=== PATIENT | female | born 1985 | race Two or more races ===

== ENCOUNTER 2018-01-05 13:09 | Inpatient (IN) | payer OTHER ==
[~2018-01-05] VITALS: Ht 180.3 cm; Wt 99.8 kg
[2018-01-05] MEDS ORDERED: PRENATAL TABLE1 EAC2 PO (14:01)
== END 2018-01-07 15:18 | disposition home or self-care (01) | DRG 807 ==
LOC: OB/GYN 13:09 → LDR 13:09 → OB/GYN 17:11
PROC: 10E0XZZ Delivery of Products of Conception, External Approach (ICD-10-PCS; principal; 2018-01-05)
PROC: 4A1HXCZ Monitoring of Products of Conception, Cardiac Rate, External Approach (ICD-10-PCS; 2018-01-05)
DX: O80 Encounter for full-term uncomplicated delivery (principal); Z37.0 Single live birth; Z3A.39 39 weeks gestation of pregnancy

== ENCOUNTER 2025-01-29 17:12 | Emergency (ER) | payer OTHER ==
[~2025-01-29] VITALS: Ht 180.3 cm; Wt 95.3 kg
[~2025-01-29 17:12] MED LIST: PRENATAL TABLE1 EAC2 PO
[2025-01-29] MEDS ORDERED: ACETAMINOPHEN 325 MG TABLET PO ONE ×2 (18:30→19:04)
[2025-01-29 20:16] LABS: BASO % 0.8 % (0.1-1.2); EOS # 0.32 (0.04-0.54); EOS % 3.8 % (0.7-7.0); LYMPH # 2.04 (1.18-3.74); LYMPH % 24.3 % (19.3-53.1); MEAN PLATELET VOLUME 10.80 fl (9.4-12.4); MONO # 0.46 (0.24-0.82); MONO % 5.5 % (4.7-12.5); NEUT # 5.46 (1.56-6.13); NEUT % 65.2 % (34.0-71.1); RED CELL DISTRIBUTION WIDTH 17.8 % (11.6-14.4)
[2025-01-29 21:31] LABS: BUN CREA RATIO 16.0 (7.0-25.0); CREATININE SERUM 0.64 mg/dL (0.55-1.02); GFR 103.85; GLUCOSE FASTING 133.0 mg/dL (65-100); OSMOLALITY SERUM 278.0 MOSM/KG (275-295)
[2025-01-29 21:33] LABS: URINE APPEARANCE Clear; URINE BILIRRUBIN Negative (NEGATIVE); URINE BLOOD Negative; URINE COLOR Dark Yellow; URINE GLUCOSE Negative (NEGATIVE); URINE KETONE 15 (NEGATIVE); URINE LEUKOCYTE Small; URINE NITRATE Negative; URINE PROTEIN Trace (NEGATIVE); URINE UROBILINOGEN 1.0 E.U./dl
[2025-01-29 21:37] LABS: URINE BACTERIA 301.1 uL (0.0-1933); URINE EPITHELIAL CELLS 18.1 uL (0.0-38.8); URINE RBC 4.3 uL (0.0-20.8); URINE WBC 21.5 uL (0.0-23.2)
[2025-01-29 21:44] LABS: TYPE CELLS SQUAMOUS; URINE CAST 0.58 uL (0.0-1.40)
== END 2025-01-30 00:07 | disposition home or self-care (01) ==
LOC: ER 17:12
PROVIDERS: General Practice
DX: O46.8X9 Other antepartum hemorrhage, unspecified trimester (principal); Z88.0 Allergy status to penicillin; Z88.6 Allergy status to analgesic agent; Z3A.01 Less than 8 weeks gestation of pregnancy; R10.21 Pelvic and perineal pain right side; K59.00 Constipation, unspecified

== ENCOUNTER 2025-02-10 23:40 | Emergency (ER) | payer OTHER ==
[~2025-02-10] VITALS: Ht 180.3 cm; Wt 95.3 kg
[2025-02-10] MEDS ORDERED: ONDANSETRON HCL 2 MG/ML VIAL IV ONE (23:45)
[2025-02-10] MEDS ORDERED: FAMOtidine 10 MG/ML (4ML VIAL) IV ONE (23:45)
[2025-02-10] MEDS ORDERED: 0.9 % SODIUM CHLORIDE 1,000 ML IV SCH (23:45)
[2025-02-10] MEDS ORDERED: PRENATA CHEWAB1 EACH PO (23:49)
[2025-02-10] MEDS ORDERED: FOLIC ACID0.8 M1 PO (23:49)
[2025-02-11 01:08] LABS: BASO % 0.7 % (0.1-1.2); EOS # 0.53 (0.04-0.54); EOS % 4.7 % (0.7-7.0); LYMPH # 2.19 (1.18-3.74); LYMPH % 19.6 % (19.3-53.1); MEAN PLATELET VOLUME 10.30 fl (9.4-12.4); MONO # 0.64 (0.24-0.82); MONO % 5.7 % (4.7-12.5); NEUT # 7.70 (1.56-6.13); NEUT % 68.9 % (34.0-71.1); RED CELL DISTRIBUTION WIDTH 20.8 % (11.6-14.4)
[2025-02-11 01:38] LABS: ALT/SGPT 27.0 U/L (12-78); AST/SGOT 12.0 U/L (15-37); BILIRUBIN TOTAL 0.26 mg/dL (0.3-1.2); BUN CREA RATIO 17.0 (7.0-25.0); CREATININE SERUM 0.64 mg/dL (0.55-1.02); GFR 103.85; GLOBULINA 3.8 G/DL (2.4-3.5); GLUCOSE FASTING 102.0 mg/dL (65-100); OSMOLALITY SERUM 277.0 MOSM/KG (275-295)
[2025-02-11 02:00] LABS: BILIRUBIN TOTAL 0.21 mg/dL (0.3-1.2); BILIRUBIN,CONJUGATED < 0.10 mg/dL (0.0-0.2)
[2025-02-11 02:59] LABS: URINE APPEARANCE Clear; URINE BILIRRUBIN Negative (NEGATIVE); URINE BLOOD Negative; URINE COLOR Yellow; URINE GLUCOSE Negative (NEGATIVE); URINE KETONE 15 (NEGATIVE); URINE LEUKOCYTE Trace; URINE NITRATE Negative; URINE PROTEIN Trace (NEGATIVE); URINE UROBILINOGEN 1.0 E.U./dl
[2025-02-11 03:02] LABS: URINE BACTERIA 797.9 uL (0.0-1933); URINE EPITHELIAL CELLS 13.9 uL (0.0-38.8); URINE RBC 18.0 uL (0.0-20.8); URINE WBC 26.3 uL (0.0-23.2)
[2025-02-11 03:04] LABS: URINE CAST 0.29 uL (0.0-1.40)
[2025-02-11] MEDS ORDERED: PEPCID40 MG PO (04:42)
[2025-02-11] MEDS ORDERED: ONDANSETRON ODT4 MG PO (04:42)
[2025-02-13] MEDS ORDERED: ZOFRAN8 MG PO (23:16)
[2025-02-13] MEDS ORDERED: PEPCID AC20 MG PO (23:16)
[2025-02-13] MEDS ORDERED: DICY20TA PO (23:16)
== END 2025-02-11 05:23 ==
LOC: ER
PROVIDERS: Preventive Medicine Public Health & General Preventive Medicine
DX: O99.611 Diseases of the digestive system complicating pregnancy, first trimester (principal); K80.20 Calculus of gallbladder without cholecystitis without obstruction; Z3A.10 10 weeks gestation of pregnancy; Z88.6 Allergy status to analgesic agent; Z88.0 Allergy status to penicillin

== ENCOUNTER → 2025-02-13 | Emergency (ER) | payer OTHER ==
[~2025-02-13] VITALS: Ht 180.3 cm; Wt 99.8 kg
[~2025-02-13] MED LIST changes: +0.9 % SODIUM CHLORIDE 1,000 ML IV SCH; +ACETAMINOPHEN 500 MG GEL..CAP PO ONE; +DICY20TA PO; +FAMOTIDINE/PF 20 MG in 0.9 % SODIUM CHLORIDE 8 ML IV PUSH ONE; +FOLIC ACID0.8 M1 PO; +ONDANSETRON HCL 4 MG in 0.9 % SODIUM CHLORIDE 50 ML IV ONE; +ONDANSETRON ODT4 MG PO; +PEPCID AC20 MG PO; +PEPCID40 MG PO; +PRENATA CHEWAB1 EACH PO; +ZOFRAN8 MG PO
[2025-02-13 18:51] LABS: BASO % 0.9 % (0.1-1.2); EOS # 0.30 (0.04-0.54); EOS % 3.0 % (0.7-7.0); LYMPH # 1.99 (1.18-3.74); LYMPH % 20.2 % (19.3-53.1); MEAN PLATELET VOLUME 10.70 fl (9.4-12.4); MONO # 0.59 (0.24-0.82); MONO % 6.0 % (4.7-12.5); NEUT # 6.88 (1.56-6.13); NEUT % 69.7 % (34.0-71.1); RED CELL DISTRIBUTION WIDTH 21.3 % (11.6-14.4)
[2025-02-13 19:30] LABS: ALT/SGPT 34.0 U/L (12-78); AST/SGOT 20.0 U/L (15-37); BILIRUBIN TOTAL 0.36 mg/dL (0.3-1.2); BILIRUBIN,CONJUGATED 0.12 mg/dL (0.0-0.2); BUN CREA RATIO 17.0 (7.0-25.0); CREATININE SERUM 0.53 mg/dL (0.55-1.02); GFR 129.1; GLOBULINA 4.1 G/DL (2.4-3.5); GLUCOSE FASTING 95.0 mg/dL (65-100); OSMOLALITY SERUM 274.0 MOSM/KG (275-295)
[2025-02-13 20:17] LABS: URINE APPEARANCE Clear; URINE BILIRRUBIN Negative (NEGATIVE); URINE BLOOD Negative; URINE COLOR Yellow; URINE GLUCOSE Negative (NEGATIVE); URINE LEUKOCYTE Small; URINE NITRATE Negative; URINE PROTEIN Negative (NEGATIVE); URINE UROBILINOGEN 1.0 E.U./dl
[2025-02-13 20:20] LABS: URINE BACTERIA 638.3 uL (0.0-1933); URINE EPITHELIAL CELLS 19.6 uL (0.0-38.8); URINE RBC 12.7 uL (0.0-20.8); URINE WBC 29.9 uL (0.0-23.2)
[2025-02-13 20:39] LABS: URINE CAST 0.00 uL (0.0-1.40); URINE KETONE 40 (NEGATIVE)
== END | disposition home or self-care (01) ==
LOC: ER 15:38
PROVIDERS: General Practice
DX: O26.611 Liver and biliary tract disorders in pregnancy, first trimester (principal); R10.11 Right upper quadrant pain; Z88.6 Allergy status to analgesic agent; Z88.0 Allergy status to penicillin; J45.909 Unspecified asthma, uncomplicated; K80.20 Calculus of gallbladder without cholecystitis without obstruction; Z3A.10 10 weeks gestation of pregnancy

== ENCOUNTER 2025-03-12 18:54 | Emergency (ER) | payer OTHER ==
[~2025-03-12] VITALS: Ht 180.3 cm; Wt 99.8 kg
[~2025-03-12 18:54] MED LIST changes: -0.9 % SODIUM CHLORIDE 1,000 ML IV SCH; -ACETAMINOPHEN 500 MG GEL..CAP PO ONE; -FAMOTIDINE/PF 20 MG in 0.9 % SODIUM CHLORIDE 8 ML IV PUSH ONE; -ONDANSETRON HCL 4 MG in 0.9 % SODIUM CHLORIDE 50 ML IV ONE
[2025-03-12] MEDS ORDERED: FOLIC ACID0.8 M1 (20:11)
[2025-03-12] MEDS ORDERED: PRENATA CHEWAB1 EACH (20:11)
[2025-03-12] MEDS ORDERED: ACETAMINOPHEN 325 MG TABLET PO ONE (21:00)
[2025-03-13 02:07] LABS: URINE APPEARANCE Clear; URINE BILIRRUBIN Negative (NEGATIVE); URINE BLOOD Negative; URINE COLOR Yellow; URINE GLUCOSE Negative (NEGATIVE); URINE KETONE Negative (NEGATIVE); URINE LEUKOCYTE Trace; URINE NITRATE Negative; URINE PROTEIN Negative (NEGATIVE); URINE UROBILINOGEN 1.0 E.U./dl
[2025-03-13 02:08] LABS: BASO % 0.6 % (0.1-1.2); EOS # 0.64 (0.04-0.54); EOS % 6.5 % (0.7-7.0); LYMPH # 2.57 (1.18-3.74); LYMPH % 26.1 % (19.3-53.1); MEAN PLATELET VOLUME 10.90 fl (9.4-12.4); MONO # 0.71 (0.24-0.82); MONO % 7.2 % (4.7-12.5); NEUT # 5.83 (1.56-6.13); NEUT % 59.4 % (34.0-71.1); RED CELL DISTRIBUTION WIDTH 20.4 % (11.6-14.4)
[2025-03-13 02:11] LABS: URINE BACTERIA 273.3 uL (0.0-1933); URINE EPITHELIAL CELLS 15.9 uL (0.0-38.8); URINE RBC 4.6 uL (0.0-20.8); URINE WBC 19.6 uL (0.0-23.2)
[2025-03-13 02:15] LABS: INR 0.98
[2025-03-13 02:16] LABS: TYPE CELLS SQUAMOUS; URINE CAST 0.00 uL (0.0-1.40)
[2025-03-13 02:36] LABS: BUN CREA RATIO 18.0 (7.0-25.0); CREATININE SERUM 0.51 mg/dL (0.55-1.02); GFR 134.96; GLUCOSE FASTING 114.0 mg/dL (65-100); OSMOLALITY SERUM 279.0 MOSM/KG (275-295)
== END 2025-03-13 08:57 | disposition home or self-care (01) ==
LOC: ER 18:55
PROVIDERS: General Practice
DX: O26.891 Other specified pregnancy related conditions, first trimester (principal); Z3A.13 13 weeks gestation of pregnancy; R10.20 Pelvic and perineal pain unspecified side; N39.0 Urinary tract infection, site not specified; R30.0 Dysuria; Z88.0 Allergy status to penicillin; Z88.6 Allergy status to analgesic agent